=== PATIENT | male | born 1945 | race Caucasian/White ===

== ENCOUNTER → 2022-11-04 | Outpatient (CLI) | payer MEDICARE ==
[~2022-11-04] MED LIST: GADOTERATE MEGLUMINE 10 MMOL/20 ML VIAL IV ONE
== END | disposition home or self-care (01) ==
LOC: RAH 11:02
PROVIDERS: ATTEND Otolaryngology Plastic Surgery within the Head & Neck
DX: H90.3 Sensorineural hearing loss, bilateral (principal)
CPT/HCPCS: 70553; A9575

== ENCOUNTER → 2024-07-26 | Outpatient (CLI) | payer MEDICARE ==
--- NOTE | 2024-07-26 10:29 | HMCIMG ---
CHEST 2VWS HISTORY: Cough COMPARISON: None FINDINGS: Frontal and lateral projections of the chest were obtained. There is no acute pulmonary infiltrates or failure. The heart is not enlarged. Aortic calcifications are seen. COPD changes are seen. Degenerative changes are seen of the thoracolumbar spine. IMPRESSION: 1. No acute pulmonary infiltrates.
== END | disposition home or self-care (01) ==
LOC: OIH 08:30
PROVIDERS: ATTEND Internal Medicine
DX: J44.9 Chronic obstructive pulmonary disease, unspecified (principal); J20.9 Acute bronchitis, unspecified; R05.9 Cough, unspecified; M47.815 Spondylosis without myelopathy or radiculopathy, thoracolumbar region
CPT/HCPCS: 71046

== ENCOUNTER → 2025-06-10 | Outpatient (CLI) | payer MEDICARE ==
--- NOTE | 2025-06-11 12:38 | HMCIMG ---
EXAM: CR Chest, 1 views. CLINICAL HISTORY: Cough. COMPARISON: None provided. FINDINGS: The lungs show no infiltrate or other acute findings. Loculated pleural effusion is seen along oblique fissure on right side. Bilateral pleural thickening/effusion is noted Mild cardiomegaly is noted. No acute osseous abnormality. IMPRESSION: Loculated pleural effusion is seen along oblique fissure on right side. Bilateral pleural thickening/effusion is noted Mild cardiomegaly is noted. /[place]
== END | disposition home or self-care (01) ==
LOC: RAH 12:24
PROVIDERS: ATTEND Internal Medicine
DX: J90 Pleural effusion, not elsewhere classified (principal); I51.7 Cardiomegaly; J06.9 Acute upper respiratory infection, unspecified
CPT/HCPCS: 71046

== ENCOUNTER → 2025-07-08 | Outpatient (CLI) | payer MEDICARE ==
--- NOTE | 2025-07-08 21:48 | HMCIMG ---
EXAM: CR Chest, 2 views. CLINICAL HISTORY: ASSESS FOR ATHEROSCLEROSIS OF AORTA COMPARISON: CXR - 06/10 FINDINGS: The lungs show no new infiltrate or other acute findings. Right middle lobe opacity noted decreased from prior. Mild cardiomegaly is noted. No acute osseous abnormality. Mild unfolding of aorta with no atherosclerotic calcifications. IMPRESSION: 1. Right middle lobe opacity suggesting resolvinng pneumonia, unchanged from prior. 2. Mild cardiomegaly. 3. Mild unfolding of aorta without atherosclerotic calcifications. 4. No acute osseous abnormality. /[place]
== END | disposition home or self-care (01) ==
LOC: RAH 11:12
PROVIDERS: ATTEND Internal Medicine
DX: J90 Pleural effusion, not elsewhere classified (principal); I51.7 Cardiomegaly
CPT/HCPCS: 71046